=== PATIENT | male | born 1975 | race Caucasian/White ===

== ENCOUNTER 2020-10-26 13:08 | Outpatient (CLI) | payer OTHER, SELFPAY ==
--- NOTE | 2020-10-26 13:23 | CT_ITS ---
WS: [id number] CT scan of the abdomen and pelvis without Oral and IV contrast. Additional two-dimensional coronal an d sagittal reconstruction was performed. 10/26/2020 Clinical Data: ACUTE ABDOMINAL PAIN Comparison: None. DLP: 1235.[address] scans at [facility] use at least one of these dose optimization techniques: automat ed exposure control; mA and/or kV adjustment per patient size (includes targeted exams where dose is matched to clinical indication); or iterative reconstruction. Findings: The lower lungs show no nodules, masses or effusions. The liver, spleen, adrenal glands and pancreas are normal. There is a small gallstone in the gallblad brannon. The right kidney shows a small central nonobstructing calculus, and there is perinephric stranding tobias rrounding the kidney. There is mild right renal pelvic dilatation and right ureteral dilatation down to the right UVJ. There is a 0.3 cm calculus at the right UVJ. The left kidney has a 0.4 cm central nonobstructing calculus. No left hydroureter is seen. There are no renal masses. There is a small left renal cortical cyst. . The abdominal aorta is normal in size. No appendicitis or diverticulitis is seen. The stomach, small bowel and colon are not remarkable. No abscess, adenopathy, ascites, mass, obstruction or free air is seen. The bladder is unremarkable. No inguinal hernia is seen. The bones of the lower thorax, lumbar spine, pelvis, and hips are normal. CT/CT kidney stone [id number] Impression: 1. Right UVJ calculus, 0.3 cm. 2. Right renal pelvic and right ureteral dilatation with perinephric stranding of the right kidney and a small nonobstructing calculus. 3. Nonobstructing central left renal calculus.
== END 2020-10-26 13:09 | disposition home or self-care (01) ==
PROVIDERS: PCP Family Medicine; Visit Provider Nurse Practitioner
DX: R10.9 Unspecified abdominal pain (principal); N20.0 Calculus of kidney
CPT/HCPCS: 74176

== ENCOUNTER → 2022-05-01 08:36 | Outpatient (BNVA) | payer SELFPAY | PROVIDERS: PCP Family Medicine; Visit Provider Family Medicine | DX: Z13.6 Encounter for screening for cardiovascular disorders (principal) | CPT/HCPCS: 80061; 82947; 83036 ==